=== PATIENT | male | born 1945 | race Caucasian/White ===

== ENCOUNTER 2019-12-19 05:52 | Day surgery (SDC) ==
--- NOTE | 2019-12-12 17:46 | EKG Report ---
Test Performed on : 12/12/2019 5:39:52 PM Test Reason : PAT Blood Pressure : / mmHG Vent. Rate : 056 BPM Atrial Rate : 056 BPM P-R Int : 154 ms QRS Dur : 108 ms QT Int : 432 ms P-R-T Axes : 035 071 005 degrees QTc Int : 416 ms Sinus bradycardia. Otherwise normal ECG When compared with ECG of 07-MAY-2014 12:25, No significant change was found Confirmed by Raphael HERNANDEZ, Waqas Henry ([id number]) on 12/13/2019 7:31:27 AM
[2019-12-12 18:04] LABS: BASO# 0.17 X1000 (0.0-0.2); BASO% 2.4 % (0.0-0.8); EOS# 0.34 X1000 (0.0-0.7); EOS% 4.9 % (0.0-10.0); HEMATOCRIT 43.3 % (42.0-52.0); HEMOGLOBIN 14.7 g/dL (14.0-18.0); IMM GRAN# 0.03 X1000 (0.0-0.04); IMM GRAN% 0.4 % (0.0-0.5); LYMPH# 2.02 X1000 (1.2-3.4); LYMPH% 28.9 % (20.5-51.1); MCH 31.3 PG (27-31); MCHC 33.9 g/dL (33-37); MCV 92.1 FL (81-99); MONO# 0.71 X1000 (0.11-0.59); MONO% 10.2 % (1.7-9.3); MPV 10.2 FL (7.4-10.4); NEUT# 3.71 X1000 (1.4-6.5); NEUT% 53.2 % (42.2-75.2); PLT 193 X1000 (130-400); RDW 12.5 % (11.5-14.5); WBC 6.98 X1000 (4.8-10.8)
[2019-12-12 18:10] LABS: INR 1.03; PROTIME 13.6 Seconds (11.0-16.0)
[2019-12-12 18:12] LABS: PTT 27.8 Seconds (22.3-41.8)
[2019-12-12 18:21] LABS: ALBUMIN 3.9 g/dL (3.5-5.0); CREATININE 1.8 mg/dL (0.7-1.2); POTASSIUM 4.1 mmol/L (3.5-5.1)
[2019-12-12 18:28] LABS: HEMOGLOBIN A1C 5.3 % (4.8-6.0)
[2019-12-12 22:10] LABS: URINE SOURCE CLEAN CATCH
[2019-12-12 22:22] LABS: BILIRUBIN URINE NEGATIVE (NEGATIVE); BLOOD URINE NEGATIVE (NEGATIVE); COLOR YELLOW; GLUCOSE URINE NEGATIVE (NEGATIVE); KETONE URINE NEGATIVE (NEGATIVE); LEUKOCYTES URINE NEGATIVE (NEGATIVE); NITRITE URINE NEGATIVE (NEGATIVE); PROTEIN URINE TRACE mg/dL (NEGATIVE); SP GRAVITY URINE 1.024; TURBIDITY URINE CLEAR (CLEAR); UR EPITHELIAL CELLS <10 /HPF (<10); URINE BACTERIA NEGATIVE /HPF; URINE RBC <10 /HPF (<10); URINE WBC <10 /HPF (<10); UROBILINOGEN URINE NORMAL (NORMAL)
[2019-12-19] MEDS ORDERED: FENTANYL ONE (06:13)
[2019-12-19] MEDS ORDERED: DIPRIVAN 1% ONE (06:13)
[2019-12-19] MEDS ORDERED: REGLAN ONE (06:45)
[2019-12-19] MEDS ORDERED: COLACE ONE (06:45)
[2019-12-19] MEDS ORDERED: LR 1,000 ML ONE (06:45)
[2019-12-19] MEDS ORDERED: LYRICA ONE (06:45)
[2019-12-19] MEDS ORDERED: PEPCID ONE (06:45)
[2019-12-19] MEDS ORDERED: KEFZOL 1 GM/D5W 2 GM/100 ML IVPB ONE (06:45)
[2019-12-19] MEDS ORDERED: CELEBREX ONE (06:45)
[2019-12-19] MEDS ORDERED: DIPRIVAN 1% 500 MG/50 ML BOTTLE ONE (06:47)
[2019-12-19] MEDS ORDERED: VANCOMYCIN ONE (07:01)
[2019-12-19] MEDS ORDERED: EXPAREL 1.3% ONE (07:01)
[2019-12-19] MEDS ORDERED: TORADOL ONE (07:01)
[2019-12-19] MEDS ORDERED: SODIUM CHLORIDE 0.9% ONE (07:01)
[2019-12-19] MEDS ORDERED: SENSORCAINE 0.25%/EPI 1:200,000 ONE (07:01)
[2019-12-19] MEDS ORDERED: DURAMORPH ONE (07:01)
[2019-12-19] MEDS ORDERED: NEOSPORIN G.U. IRRIGANT ONE (07:01)
[2019-12-19] MEDS ORDERED: CYKLOKAPRON 1,000 MG/NS 2,000 MG/200 ML IVPB ONE (07:01)
[2019-12-19] MEDS ORDERED: ZOFRAN ONE (08:57)
[2019-12-19] MEDS ORDERED: DECADRON ONE (08:57)
[2019-12-19] MEDS ORDERED: EPHEDRINE ONE (09:21)
[2019-12-19 09:50] LABS: URINE SOURCE CATH
[2019-12-19 09:54] LABS: BILIRUBIN URINE NEGATIVE (NEGATIVE); BLOOD URINE NEGATIVE (NEGATIVE); COLOR YELLOW; GLUCOSE URINE NEGATIVE (NEGATIVE); KETONE URINE NEGATIVE (NEGATIVE); LEUKOCYTES URINE NEGATIVE (NEGATIVE); NITRITE URINE NEGATIVE (NEGATIVE); PH URINE 7.5; PROTEIN URINE NEGATIVE (NEGATIVE); SP GRAVITY URINE 1.019; TURBIDITY URINE CLEAR (CLEAR); UR EPITHELIAL CELLS <10 /HPF (<10); URINE BACTERIA NEGATIVE /HPF; URINE RBC <10 /HPF (<10); URINE WBC <10 /HPF (<10); UROBILINOGEN URINE NORMAL (NORMAL)
[2019-12-19] MEDS ORDERED: NEO-SYNEPHRINE ONE (10:36)
[2019-12-19] MEDS: CYMBALTA PO SCH (11:40)
[2019-12-19] MEDS: NORVASC PO SCH (11:41)
--- NOTE | 2019-12-19 11:42 | Diag Imaging Result Doc PS360 ---
EXAM: KNEE 1-2 VIEWS-RIGHT HISTORY: right total knee TECHNIQUE: Two views COMPARISON: None. FINDINGS: There is been orthopedic replacement of the knee. No fracture. No dislocation. There are anterior skin ortega and a superior surgical drain. IMPRESSION: Good alignment to the femoral and tibial components of the orthopedically replaced knee. Electronically signed by Ricardo Cast 12/19/2019 11:40 AM
[2019-12-19] MEDS ORDERED: NS 1,000 ML ONE (11:44)
[2019-12-19] MEDS ORDERED: MILK OF MAGNESIA PO PRN (12:45)
[2019-12-19] MEDS ORDERED: ZOFRAN PO PRN (12:45)
[2019-12-19] MEDS ORDERED: MORPHINE IV PRN ×3 (12:45)
[2019-12-19] MEDS: NS 1,000 ML IV SCH (13:05)
[2019-12-19] MEDS: TYLENOL PO SCH ×2 (14:43→22:01)
[2019-12-19] MEDS: OXY IR PO PRN ×2 (14:46→21:34)
--- NOTE | 2019-12-19 15:03 | OPERATIVE NOTE ---
PROCEDURE DATE: 12/19/2019 PREOPERATIVE DIAGNOSIS: Degenerative arthritis of the right knee. POSTOPERATIVE DIAGNOSIS: Degenerative arthritis of the right knee. PROCEDURE: Right total knee arthroplasty with DePuy Attune size 8, posterior stabilized femur size 8, a tibial tray, a 6 mm rotating platform tibial insert and a 41 mm medialized anatomic patella. SURGEON: Dr. José Antonio Benson. COP BREAKER: CHLOE Hernandez, who is necessary for proper retraction, manipulation of the extremity during the case and improved efficiency. SECOND RESTAURANT HOST: Toñito Randle RN. ANESTHESIA: Spinal. IV FLUIDS: 1400 mL lactated Ringer's. ESTIMATED BLOOD LOSS: 25 mL. TOURNIQUET TIME: 90 minutes at 300 mmHg. COMPLICATIONS: None. INDICATION: The patient is a 74-year-old male with chronic history of worsening pain and discomfort of his right knee. He has continued pain and discomfort despite appropriate nonoperative treatment. X-rays revealed degenerative osteoarthritis. Recommendation to proceed with right total knee arthroplasty was offered. Risks and benefits of surgery were explained, including the risks of anesthesia, , bleeding, infection, failure to relieve pain, postoperative stiffness, nerve injury, blood clots, and other imponderables. All questions answered. Patient and family wishes to go ahead with surgery. DETAILS OF OPERATION: The patient was taken to the operating room and underwent spinal anesthesia. After adequate anesthesia was obtained, he was placed supine on the operating table. The right lower extremity was prepped and draped in usual sterile fashion. Esmarch was used to exsanguinate the lower extremity and tourniquet was inflated to 300 mmHg. Standard anterior incision made with a skin knife. Medial and lateral skin envelopes were developed. Standard medial parapatellar arthrotomy was then performed. Patella fat pad was excised. Retractors then placed. Approximately 1 cm anterior to the PCL insertion, starting reamer was passed. Intramedullary guide with a distal femoral cutting block was pinned in position. The distal femoral cut was performed in standard fashion. A sizing block was placed and measured size 8. Corresponding pins were placed. A size 8 cutting block was pinned in position. Anterior, posterior, and chamfer cuts were then made. Attention then turned to the proximal tibia where with using the extramedullary guide, the proximal tibia cutting block was pinned in position. It had good alignment confirmed with the alignment jackelyn. The proximal tibia was then resected in standard fashion. Medial and lateral menisci were excised. A curved osteotome was used to remove the posterior osteophytes off the distal femur. A spacer block was placed and there was good soft tissue balance in both flexion and extension. Attention then turned back to the proximal tibia where a size 8 tibial tray appeared to be the correct size. This was pinned in position, followed by a central reamer and a fin punch. A box cutting guide was pinned on the distal femur. A box cut was performed. A trial femoral component was then placed. Two lug holes were drilled. A trial tibial insert was then placed and good soft tissue balance with flexion and extension. The patella was everted and resected in standard fashion. A size 41 appeared to be the correct size. Corresponding holes were drilled. Trial patella component was then placed and good patellofemoral tracking. The trial components were then removed. Copious irrigation then performed with antibiotic pulsatile lavage. Vancomycin was mixed with cement on the back table, first with the tibial tray, followed by excess cement removed with a [place]. Followed by femoral component, cemented in standard fashion until the excess cement was removed with a [place]. A trial tibial insert was then placed in full extension. Axial loading was maintained while cement cured. The patella component was then cemented in standard fashion. Patella clamp was placed. While cement was curing, Exparel was placed in deep soft tissue, as well as the subcutaneous tissue. After cement had cured, peripheral cement was removed with small osteotome. The 6 mm rotating platform tibial insert appeared to be the correct size. Trial insert was removed. Exparel was placed deep posterior capsule. The wound was copiously irrigated once again. A 6 mm rotating platform tibial insert was then placed. The knee was then carried through range of motion. Good range of motion, good soft tissue balance, good patellofemoral tracking. A 1/8 Hemovac drain was placed, but was not sewn in. Copious irrigation then performed once again with antibiotic pulsatile lavage. A #1 Vicryl was then used to repair the arthrotomy followed by 2-0 Vicryl to repair subcutaneous tissue and skin ortega. Adaptic, sterile 4 x 4s, Webril, cryo unit, Niraj wrap applied to the left lower extremity. Patient tolerated the procedure well with no complications. Transferred to the recovery room in stable condition. cc: José Antonio Benson MD
[2019-12-19] MEDS: KEFZOL 2 GM/D5W 2 GM/50 ML IVPB IV SCH (16:00)
[2019-12-19] MEDS ORDERED: TOPROL XL PO SCH (21:00)
[2019-12-19] MEDS: COLACE PO SCH (22:01)
[2019-12-19] MEDS: PERIDEX MT SCH (22:02)
[2019-12-20] MEDS: NS 1,000 ML IV SCH (01:35)
[2019-12-20] MEDS: KEFZOL 2 GM/D5W 2 GM/50 ML IVPB IV SCH (01:35)
[2019-12-20] MEDS: OXY IR PO PRN ×2 (01:35→06:57)
[2019-12-20] MEDS: TYLENOL PO SCH ×3 (06:58→11:44)
[2019-12-20 07:04] LABS: HEMATOCRIT 38.4 % (42.0-52.0)
[2019-12-20 07:16] LABS: CALCIUM 8.5 mg/dL (8.8-10.2); CREATININE 1.5 mg/dL (0.7-1.2); POTASSIUM 4.6 mmol/L (3.5-5.1)
[2019-12-20] MEDS: COLACE PO SCH (08:05)
[2019-12-20] MEDS: CYMBALTA PO SCH (08:05)
[2019-12-20] MEDS: NORVASC PO SCH (08:06)
[2019-12-20] MEDS: PERIDEX MT SCH (08:06)
[2019-12-20] MEDS ORDERED: ASPIRIN PO SCH (09:00)
--- NOTE | 2019-12-20 09:13 | ORTHOPAEDICS PROGRESS NOTE ---
DATE: 12/20/2019 SUBJECTIVE: The patient was a 74-year-old male who is 1 day status post right total knee arthroplasty. Patient is currently resting comfortably. PHYSICAL EXAMINATION: Right lower extremity: Wound looks good. There are no signs or symptoms of infection. He has active dorsiflexion, plantar flexion. He is able to perform a straight leg raise. LABS: Pending. IMPRESSION: Postoperative day #1 status post right total knee arthroplasty. PLAN: At this point, we will mobilize physical therapy. We will plan on discharging home if he is mobilizing well. We will arrange for home physical therapy. cc: José Antonio Benson MD
[2019-12-20 11:36] VITALS: BP 109/59
== END 2019-12-20 13:29 | disposition home health service (06) ==
LOC: 4N 05:52 → OR 05:52
PROVIDERS: ATTEND Orthopaedic Surgery Adult Reconstructive Orthopaedic Surgery